=== PATIENT | male | born 1980 | race Caucasian/White ===

== ENCOUNTER → 2017-12-25 | Outpatient (CLI) | payer OTHER ==
--- NOTE | 2017-12-25 17:52 | RAD ---
EXAM: Left lower extremity venous Doppler. HISTORY: Left lower extremity pain/swelling. COMPARISON: None. FINDINGS: Grayscale and Doppler analysis of the left lower extremity deep venous system was performed with graded compression and augmentation. The common femoral, greater saphenous, superficial femoral, popliteal and calf veins were assessed. There is no evidence of deep venous thrombosis. At the site of concern along the left anterolateral thigh, there is a heterogeneous hypoechoic region within the vastus musculature with internal flow. This may represent an intramuscular hematoma or mass. IMPRESSION: 1. Intramuscular hematoma versus a mass in the vastus musculature. MRI of the left thigh with and without contrast is recommended for further evaluation if the diagnosis is not already known. 2. No evidence of deep venous thrombosis. Electronically signed by: Jorgito Martinez MD (12/25/2017 5:49 PM) [facility]
== END | disposition home or self-care (01) ==
LOC: US 16:50
PROVIDERS: ATTEND Physician Assistant
DX: R60.0 Localized edema (principal); M79.662 Pain in left lower leg
CPT/HCPCS: 93971

== ENCOUNTER 2019-01-29 20:15 | Emergency (ER) | payer SELFPAY ==
[~2019-01-29] VITALS: Ht 182.9 cm; Wt 138.8 kg
[2019-01-29 20:36] VITALS: BP 174/102
[2019-01-29] MEDS ORDERED: DOXYCYCLINE HYCLATE 100 MG TABLET PO ONE (21:30)
[2019-01-29] MEDS ORDERED: IBUPROFEN 600 MG TABLET. PO ONE (21:30)
[2019-01-29] MEDS ORDERED: MELO7.5T29 PO (21:31)
[2019-01-29] MEDS ORDERED: DOXY100T PO (21:31)
[2019-01-29] MEDS ORDERED: TRAM50TA PO (21:31)
--- NOTE | 2019-01-29 21:32 | PHYS DOC ---
Past History Past Medical History: Diabetes, Hypertension Past Surgical History: Other Additional Past Surgical Histo: R TOE AMPUTATION Smoking: Non-smoker Alcohol Use: None Drug Use: None Adult General Chief Complaint Chief Complaint: INSECT BITE HPI HPI Patient is a 88-year-old male presents with swelling and redness of his right hand. He sustained an insect bite approximately a week ago. Since that time there is been increasing redness and swelling. He tried to home treated with peroxide and tried to keyshawn it. There was no drainage from this. Denies any systemic fever. Reports his blood sugars have been running in the normal range. His last tetanus vaccine was 13 months ago. Pain is mild to moderate but just not improving over time.[] Review of Systems Review of Systems Constitutional: Denies fever or chills [] Eyes: Denies change in visual acuity, redness, or eye pain [] HENT: Denies nasal congestion or sore throat [] Respiratory: Denies cough or shortness of breath [] Cardiovascular: No chest pain or palpitations[] GI: Denies abdominal pain, nausea, vomiting, bloody stools or diarrhea [] : Denies dysuria or hematuria [] Musculoskeletal: Denies back pain or joint pain [] Integument: See history of present illness[] Neurologic: Denies headache, focal weakness or sensory changes [] Endocrine: Denies polyuria or polydipsia [] All other systems were reviewed and found to be within normal limits, except as documented in this note. Allergies Allergies Allergies Coded Allergies Type Severity Reaction Last Updated Verified No Known Drug Allergies 01/29/19 No Physical Exam Physical Exam Constitutional: Well developed, well nourished, no acute distress, non-toxic a ppearance. [] HENT: Normocephalic, atraumatic, bilateral external ears normal, oropharynx moist, no oral exudates, nose normal. [] Eyes: PERRLA, EOMI, conjunctiva normal, no discharge. [] Neck: Normal range of motion, no tenderness, supple, no stridor. [] Cardiovascular:Heart rate regular rhythm, no murmur [] Lungs & Thorax: Bilateral breath sounds clear to auscultation [] Abdomen: Not examined. [] Skin: Warm, dry, erythema and induration dorsal surface of right hand. It is 5 cm proximal to distal by 3 cm transverse. No axillary lymphadenopathy. No drainage. There is a central excoriation. No eschar present.. [] Back: No tenderness, no CVA tenderness. [] Extremities: Right hand is noted in the skin exam above. The other 3 extremities show: No tenderness, no cyanosis, no clubbing, ROM intact, no edema. [] Neurologic: Alert and oriented X 3, normal motor function, normal sensory function, no focal deficits noted. [] Psychologic: Affect normal, judgement normal, mood normal. [] Current Patient Data Vital Signs Vital Signs Date Time Temp Pulse Resp B/P (MAP) Pulse Ox O2 Delivery O2 Flow Rate FiO2 01/29/19 20:36 98.2 85 18 98 Room Air EKG EKG [] Radiology/Procedures Radiology/Procedures [] Course & Med Decision Making Course & Med Decision Making Pertinent Labs and Imaging studies reviewed. (See chart for details) ED course: Patient arrived, was placed in bed, and tolerated exam well. Findings and plan were discussed with the patient voiced understanding. All questions were answered. He was discharged in improved condition Medical decision making: Patient appears to have a cellulitis. We will treat him with oral outpatient antibiotics as well as pain medicine. There is no evidence of systemic infection. No evidence of an abscess requiring drainage at this time.[] Dragon Disclaimer Dragon Disclaimer This electronic medical record was generated, in whole or in part, using a voice recognition dictation system. Departure Departure: Impression: Primary Impression: Cellulitis of right hand Disposition: HOME, SELF-CARE Condition: IMPROVED Referrals: NON,STAFF (PCP) Patient Instructions: Cellulitis Additional Instructions: Apply warm compresses to the affected area for 15 minutes at a time, at least 4 times a day. Follow-up with your regular doctor in 2 days for a wound check. Return to the ER if worsening pain, weakness, or any other concerns. Scripts Tramadol Hcl (TRAMADOL HCL) 50 Mg Tablet 50 MG PO PRN Q6HRS PRN for PAIN, #20 TAB Prov: CARL REYES DO 01/29/19 Meloxicam (MELOXICAM) 7.5 Mg Tablet 7.5 MG PO DAILY for PAIN, #20 TAB Prov: CARL REYES DO 01/29/19 Doxycycline Hyclate (DOXYCYCLINE HYCLATE) 100 Mg Tablet 1 TAB PO BID for CELLULITIS, #20 TAB Prov: CARL REYES DO 01/29/19 CARL REEYS DO Jan 29, 2019 21:31
== END 2019-01-29 21:40 | disposition home or self-care (01) ==
LOC: ER 20:15
DX: S60.561A Insect bite (nonvenomous) of right hand, initial encounter (principal); L03.113 Cellulitis of right upper limb; E11.9 Type 2 diabetes mellitus without complications; I10 Essential (primary) hypertension; W57.XXXA Bitten or stung by nonvenomous insect and other nonvenomous arthropods, initial encounter; Y93.89 Activity, other specified; Y92.89 Other specified places as the place of occurrence of the external cause; Y99.8 Other external cause status
CPT/HCPCS: 99283

== ENCOUNTER 2020-12-08 22:15 | Emergency (ER) | payer OTHER ==
[~2020-12-08] VITALS: Ht 182.9 cm; Wt 145.5 kg
[~2020-12-08 22:15] MED LIST: DOXY100T PO; MELO7.5T29 PO; TRAM50TA PO
[2020-12-08 22:29] VITALS: BP 164/90
[2020-12-08] MEDS ORDERED: CLIN300C9 PO (22:42)
[2020-12-08] MEDS ORDERED: MUPI22OI2 TP (22:42)
--- NOTE | 2020-12-08 22:42 | PHYS DOC ---
Past History Past Medical History: Diabetes, Hypertension Past Surgical History: Other Additional Past Surgical Histo: R TOE AMPUTATION Smoking: Non-smoker Alcohol Use: None Drug Use: None General Adult EDM: Chief Complaint: TOE PROBLEM HPI: HPI: Patient is a [age] year old [sex] who presents with [] Review of Systems: Review of Systems: Constitutional: Denies fever or chills Eyes: Denies change in visual acuity HENT: Denies nasal congestion or sore throat Respiratory: Denies cough or shortness of breath Cardiovascular: Denies chest pain or edema GI: Denies abdominal pain, nausea, vomiting, bloody stools or diarrhea : Denies dysuria Musculoskeletal: Denies back pain or joint pain Integument: Denies rash Neurologic: Denies headache, focal weakness or sensory changes Endocrine: Denies polyuria or polydipsia Lymphatic: Denies swollen glands Psychiatric: Denies depression or anxiety Current Medications: Current Meds: Current Medications Medications (Trade) Dose Ordered Sig/Hannah Start Time Stop Time Status Last Admin Dose Admin Clindamycin HCl (Cleocin) 300 mg 1X ONCE 12/08/20 23:00 12/08/20 23:01 Neomycin/ Polymyxin/ Bacitracin (Triple Antibiotic Ointment) 1 pkt 1X ONCE 12/08/20 23:00 12/08/20 23:01 Allergies: Allergies: Allergies Coded Allergies Type Severity Reaction Last Updated Verified No Known Drug Allergies 01/29/19 No Physical Exam: PE: Constitutional: Well developed, well nourished, no acute distress, non-toxic appearance. [] HENT: Normocephalic, atraumatic, bilateral external ears normal, oropharynx moist, no oral exudates, nose normal. [] Eyes: PERRLA, EOMI, conjunctiva normal, no discharge. [] Neck: Normal range of motion, no tenderness, supple, no stridor. [] Cardiovascular:Heart rate regular rhythm, no murmur [] Lungs & Thorax: Bilateral breath sounds clear to auscultation [] Abdomen: Bowel sounds normal, soft, no tenderness, no masses, no pulsatile masses. [] Skin: Warm, dry, no erythema, no rash. [] Back: No tenderness, no CVA tenderness. [] Extremities: No tenderness, no cyanosis, no clubbing, ROM intact, no edema. [] Neurologic: Alert and oriented X 3, normal motor function, normal sensory function, no focal deficits noted. [] Psychologic: Affect normal, judgement normal, mood normal. [] Current Patient Data: Vital Signs: Vital Signs Date Time Temp Pulse Resp B/P (MAP) Pulse Ox O2 Delivery O2 Flow Rate FiO2 12/08/20 22:29 97.9 86 18 164/90 (114) 97 Room Air EKG: EKG: [] Radiology/Procedures: Radiology/Procedures: [] Heart Score: Risk Factors: Risk Factors: DM, Current or recent (<one month) smoker, HTN, HLP, family history of CAD, obesity. Risk Scores: Score 0 - 3: 2.5% MACE over next 6 weeks - Discharge Home Score 4 - 6: 20.3% MACE over next 6 weeks - Admit for Clinical Observation Score 7 - 10: 72.7% MACE over next 6 weeks - Early Invasive Strategies Course & Med Decision Making: Course & Med Decision Making Pertinent Labs and Imaging studies reviewed. (See chart for details) [] Dragon Disclaimer: Dragon Disclaimer: This electronic medical record was generated, in whole or in part, using a voice recognition dictation system. Departure Departure: Impression: Primary Impression: Paronychia Additional Impression: Hx of diabetes mellitus Disposition: HOME / SELF CARE / HOMELESS Condition: STABLE Referrals: NON,STAFF (PCP) LOBITO MORENO DPM Patient Instructions: Paronychia, [id number] Additional Instructions: Do not soak your wound. You may shower. Clean wound daily with soap and water. Change dressing 3 times daily. Use prescribed antibiotic ointment with each dressing change. Scripts Clindamycin Hcl (CLINDAMYCIN HCL) 300 Mg Capsule 1 CAP PO TID for infection for 7 Days, #21 CAP Prov: ASMITA MARTINEZ DO 12/08/20 Mupirocin (MUPIROCIN) 22 Gm Oint...g. 1 ROYCE TP TID for Paronychia, #15 GM Prov: ASMITA MARTINEZ DO 12/08/20 ASMITA MARTINEZ DO Dec 08, 2020 22:42
[2020-12-08] MEDS ORDERED: NEOMY/BACITR/POLYMYXIN OINT PACKET. TP ONE (23:00)
[2020-12-08] MEDS ORDERED: CLINDAMYCIN HCL 150 MG CAPSULE PO ONE (23:00)
== END 2020-12-08 23:05 | disposition home or self-care (01) ==
LOC: ER 22:15
DX: L03.031 Cellulitis of right toe (principal); E11.9 Type 2 diabetes mellitus without complications; I10 Essential (primary) hypertension
CPT/HCPCS: 99283-25